=== PATIENT | male | born 1985 | race Two or more races ===

== ENCOUNTER 2022-06-01 11:32 | Emergency (ER) | payer MEDICAID, OTHER ==
[~2022-06-01] VITALS: Ht 172.7 cm; Wt 77.6 kg
[2022-06-01 12:45] VITALS: BP 137/73
[2022-06-01] MEDS ORDERED: ACETAMINOPHEN 500 MG TAB PO ONE (13:30)
[2022-06-01] MEDS ORDERED: ACET-1080 PO (14:03)
== END 2022-06-01 14:13 | disposition home or self-care (01) ==
LOC: ER 11:32
DX: S00.03XA Contusion of scalp, initial encounter (principal); W22.8XXA Striking against or struck by other objects, initial encounter; Y93.89 Activity, other specified; Y92.89 Other specified places as the place of occurrence of the external cause; Y99.8 Other external cause status

== ENCOUNTER 2022-06-05 14:51 | Emergency (ER) | payer MEDICAID ==
[~2022-06-05] VITALS: Ht 167.6 cm; Wt 78.4 kg
[~2022-06-05 14:51] MED LIST: ACET-1080 PO
[2022-06-05 20:39] VITALS: BP 115/84
== END 2022-06-05 20:41 | disposition home or self-care (01) ==
LOC: ER 15:01 → EDUNIT# 15:01 → ER 20:41
DX: S00.03XA Contusion of scalp, initial encounter (principal); R51.9 Headache, unspecified; W22.8XXA Striking against or struck by other objects, initial encounter; Y93.89 Activity, other specified; Y92.89 Other specified places as the place of occurrence of the external cause; Y99.8 Other external cause status